=== PATIENT | male | born 1960 | race Two or more races ===

== ENCOUNTER 2018-07-26 17:34 | Emergency (ER) | payer BC ==
[~2018-07-26] VITALS: Ht 172.7 cm; Wt 87.1 kg
[2018-07-26 18:28] VITALS: BP 113/70
[2018-07-26] MEDS ORDERED: METH4TAB2 PO (18:38)
[2018-07-26] MEDS ORDERED: HYDR-971 PO (18:38)
--- NOTE | 2018-07-26 18:38 | PHYS DOC ---
Adult General Chief Complaint Chief Complaint: BACK PAIN OR INJURY HPI HPI Patient is a 57 year old male who presents today complaining of 10 out of 10 sharp shooting pain from the right low back into the right lower extremity that has been going on for month. Patient denies any known injury. States pain is worse when he ambulates. He states he was seen by the PCP in the course of this week diagnosed with sciatica and was started on cyclobenzaprine and naproxen. Patient states it's not touching his pain. Patient denies any loss of bowel bladder function. PCP at [facility] Review of Systems Review of Systems Constitutional: Denies fever or chills [] GI: Denies abdominal pain, nausea, vomiting, bloody stools or diarrhea [] : Denies dysuria or hematuria [] Musculoskeletal: Reports pain radiating from the right low back into the right lower extremity Integument: Denies rash or skin lesions [] Neurologic: Denies headache, focal weakness or sensory changes [] All other systems were reviewed and found to be within normal limits, except as documented in this note. Current Medications Current Medications Current Medications Medications (Trade) Dose Ordered Sig/[facility] Start Time Stop Time Status Last Admin Dose Admin Acetaminophen/ Hydrocodone Bitart (Lortab 5/325) 2 tab 1X ONCE 07/26/18 18:45 07/26/18 18:49 DC 07/26/18 18:54 2 TAB Diazepam (Valium) 5 mg 1X ONCE 07/26/18 18:45 07/26/18 18:49 DC 07/26/18 18:54 5 MG Prednisone (Prednisone) 50 mg 1X ONCE 07/26/18 18:45 07/26/18 18:49 DC 07/26/18 18:54 50 MG Allergies Allergies Allergies Coded Allergies Type Severity Reaction Last Updated Verified No Known Drug Allergies 07/26/18 No Physical Exam Physical Exam Constitutional: Well developed, well nourished, no acute distress, non-toxic appearance. [] Abdomen: Bowel sounds normal, soft, no tenderness, no masses, no pulsatile masses. [] Skin: Warm, dry, no erythema, no rash. [] Back: No tenderness, no CVA tenderness. [] Extremities: No tenderness, no cyanosis, no clubbing, ROM intact, no edema. Positive straight leg raise to the right side at approximately 40 Neurologic: Alert and oriented X 3, normal motor function, normal sensory function, no focal deficits noted. [] Psychologic: Affect normal, judgement normal, mood normal. [] Current Patient Data Vital Signs Vital Signs Date Time Temp Pulse Resp B/P (MAP) Pulse Ox O2 Delivery O2 Flow Rate FiO2 07/26/18 18:54 22 07/26/18 18:28 98.4 109 113/70 (84) 95 Room Air 98.4 EKG EKG [] Radiology/Procedures Radiology/Procedures [] Course & Med Decision Making Course & Med Decision Making Pertinent Labs and Imaging studies reviewed. (See chart for details) This is a 57-year-old male patient presenting with sciatica. He was seen by the PCP in the course of this week and started on cyclobenzaprine and naproxen. He has not obtained any relief from them. Will add him Medrol Dosepak and 12 tablets of hydrocodone. He has an appointment with his PCP on Saturday next week. Patient has no cauda equina syndrome symptoms. He was provided return precautions and discharged. Staff Physician Addendum: I was working in the ER during the course of this patient's visit. I was available for consultation as needed, but I was not directly involved in the care of this patient. Dragon Disclaimer Dragon Disclaimer This electronic medical record was generated, in whole or in part, using a voice recognition dictation system. Departure Departure Impression: Primary Impression: Sciatica of right side Disposition: HOME, SELF-CARE Condition: STABLE Referrals: MARJORIE DANIEL MD (PCP) follow up on Saturday Patient Instructions: Sciatica with [facility] Additional Instructions: You were seen in the emergency room for sciatica. Continue taking the medications you got from your own doctor. Also take the new medications we wrote you today. Do not drive or operate machinery on hydrocodone. Scripts Hydrocodone/Apap 5-325 (NORCO 5-325 TABLET) 1 Each Tablet 1 TAB PO Q6HRS, #12 TAB Prov: GRACIELA LYNNE APRN 07/26/18 Methylprednisolone (MEDROL) 4 Mg Tab.ds.pk 1 PKG PO UD, #1 PKG Prov: GRACIELA LYNNE RECREATION ESTABLISHMENT MANAGER 07/26/18 GRACIELA LYNNE APRN Jul 26, 2018 18:38 RAJ MOHAN MD Jul 26, 2018 19:03
[2018-07-26] MEDS ORDERED: diazePAM 5 MG TABLET PO ONE (18:45)
[2018-07-26] MEDS ORDERED: predniSONE 10 MG TABLET PO ONE (18:45)
[2018-07-26] MEDS ORDERED: HYDROcodone/APAP 5/325MG 1 TAB TABLET PO ONE (18:45)
== END 2018-07-26 19:02 | disposition home or self-care (01) ==
LOC: ER 17:34
DX: M54.41 Lumbago with sciatica, right side (principal)
CPT/HCPCS: 99284; J7512